=== PATIENT | male | born 1990 | race Caucasian/White ===

== ENCOUNTER 2017-02-18 15:49 | Emergency (ER) | payer OTHER ==
[~2017-02-18] VITALS: Ht 182.9 cm; Wt 92.5 kg
[2017-02-18 15:53] VITALS: BP 156/100; PULSE 87; TEMP 99.7
== END 2017-02-18 17:14 | disposition home or self-care (01) ==
LOC: COL.ER 15:49
DX: Z77.098 Contact with and (suspected) exposure to other hazardous, chiefly nonmedicinal, chemicals (principal)

== ENCOUNTER 2017-02-22 08:04 | Outpatient (RCR) | payer OTHER | END 2017-03-16 11:24 | LOC: WSOH 08:04 | DX: T59.4X1A Toxic effect of chlorine gas, accidental (unintentional), initial encounter (principal); Y92.34 Swimming pool (public) as the place of occurrence of the external cause; Y99.0 Civilian activity done for income or pay ==